=== PATIENT | female | born 1945 | race Caucasian/White ===

== ENCOUNTER 2024-06-25 11:08 | Emergency (ER) | payer MEDICARE ==
[~2024-06-25] VITALS: Ht 167.6 cm; Wt 85.7 kg
--- NOTE | 2024-06-25 11:16 | ERN ---
ED Note History of Present Illness Stated Complaint: RIB PAIN Chief Complaint: Rib Pain Time Seen by MD: 11:12 Dictation: PATIENT IS AN 79-YEAR-OLD FEMALE HERE WITH LEFT LATERAL RIB AND CHEST WALL PAIN TENDERNESS STATUS POST A FALL ON FRIDAY. SHE STATES SHE WAS WALKING WHEN SHE TRIPPED AND FELL ON HER, LANDED ON HER LEFT SIDE OF HER CHEST. NO BLOOD THINNERS NO SHORTNESS A BREATH NO HEMOPTYSIS. NO TRAUMA ALERT CRITERIA. SHE STATES SHE HAS NOT TAKEN ANYTHING FOR PAIN BUT IT HAS NOT GOTTEN AND WOULD JUST LIKE AN X-RAY. BILATERAL BREATH SOUNDS CLEAR TO AUSCULTATION SKIN IS INTACT WITH NO ECCHYMOSIS NO PALPABLE RIB FRACTURE. PATIENT HAS RIGHT FOREHEAD FADED ECCHYMOSIS, NO HAMILTON OR RACCOON SIGN. Allergies: Coded Allergies: No Known Drug Allergies (Unverified Allergy, Unknown, 06/25/24) Home Meds Active Scripts Methylprednisolone (Medrol) 4 Mg Tab.ds.pk, 1 TAB PO AD for 6 Days, #21 TAB 0 Refills 6 on day 1 then reduce by one tablet daily until gone Prov:EUNICE EATON NP 06/25/24 Acetaminophen with Codeine (Acetaminophen-Cod #3 Tablet) 300 Mg-30 Mg Tablet, 1 TAB PO Q4H PRN for MODERATE TO SEVERE PAIN, #12 TAB 0 Refills Prov:EUNICE EATON NP 06/25/24 Past Medical History History: Not Applicable RN Note Reviewed/Agreed w/PFSH: Yes Review of System Dictation CONSTITUTIONAL: NEGATIVE EXCEPT FOR HPI HEAD/FACE: NEGATIVE EXCEPT FOR HPI EENT: NEGATIVE EXCEPT FOR HPI RESPIRATORY: NEGATIVE EXCEPT FOR HPI LEFT LATERAL CHEST WALL TENDERNESS GASTROINTESTINAL/ABDOMINAL: NEGATIVE EXCEPT FOR HPI GENITOURINARY: NEGATIVE EXCEPT FOR HPI MUSCULOSKELETAL: NEGATIVE EXCEPT FOR HPI INTEGUMENTARY: NEGATIVE EXCEPT FOR HPI NEUROLOGICAL/PSYCH: NEGATIVE EXCEPT FOR HPI HEMATOLOGIC/LYMPHATIC: NEGATIVE EXCEPT FOR HPI ALL SYSTEMS NEGATIVE, EXCEPT NOTED ABOVE. 13 POINT REVIEW OF SYSTEMS ASSESSED AND ALL NEGATIVE EXCEPT FOR ABOVE. Initial Vital Sign VS Vital Signs Date Time Temp Pulse Resp B/P (MAP) Pulse Ox O2 Delivery O2 Flow Rate FiO2 06/25/24 11:10 97.9 68 18 154/77 98 Room Air 0 06/25/24 11:28 21 Physical Exam Dictation VITAL SIGNS REVIEWED GENERAL APPEARANCE: ALERT, ORIENTED X 3, MILD ACUTE DISTRESS, WELL DEVELOPED, NOURISHED. PATIENT REFUSED P.R.N. ANALGESIA I DO NOT LIKE PILLS HEAD AND FACE: FADED ECCHYMOSIS TO RIGHT LATERAL FOREHEAD. NO HAMILTON OR RAC COON SIGN EYES: PERRL, PINK CONJUNCTIVAS, EYELID NO TRAUMA, ANTERIOR CHAMBER WITH ARCUS SENILIS. EARS: PINNAS INTACT AND NO SIGNS OF TRAUMA OR ERYTHEMA EAR CANALS CLEAR AND NO DISCHARGE TM NO ERYTHEMA NO HEMOTYMPANUM NOSE: NO DISCHARGE, NO BLEEDING. OROPHARYNX: MOUTH NORMAL, TONGUE PINK, PHARYNX CLEAR,NO ERYTHEMA, TONSILS NO EXUDATES, NO ABSCESSES NOTED, MUCOUS MEMBRANE MOIST NECK: SUPPLE, NON-TENDER, NO THYROMEGALY, NO MASSES, NO JVD, NO BRUITS BREAST:DEFERRED CHEST: LEFT LATERAL SUPERIOR CHEST WALL TENDERNESS TENDERNESS, NO CREPITUS, NO PARADOXICAL MOVEMENT, NO RETRACTIONS NO FLAIL T, NO PALPABLE RIB FRACTURE LUNGS:CLEAR, WELL-VENTILATED, SYMMETRIC, NO RALES, NO WHEEZING, NO RHONCHI, NO STRIDOR, GOOD BREATH SOUNDS BILATERALLY BILATERAL BREATH SOUNDS CLEAR HEART: REGULAR RATE, REGULAR RHYTHM, NO MURMUR, NO GALLOPS VASCULAR: NO PERIPHERAL EDEMA, ABDOMEN: SOFT, POSITIVE BOWEL SOUNDS, NONDISTENDED, NO GUARDING, NONTENDER, NO REBOUND, NO MASSES NO HEPATOMEGALY, NO SPLENOMEGALY, NO RUEDA'S SIGN, NO HERNIAS. RECTAL: DEFERRED GENITAL: DEFERRED NEUROLOGICAL: NORMAL SPEECH, MOTOR FUNCTION INTACT, SENSORY FUNCTION INTACT NIH IS 0, AT BEDSIDE SAID SHE IS BASELINE MUSCULOSKELETAL: NECK NONTENDER, FULL RANGE OF MOTION, BACK NONTENDER, FULL RANGE OF MOTION, NO MIDLINE SPINE PAIN OR STEP-OFFS EXTREMITIES: NONTENDER, FULL RANGE OF MOTION SKIN: COLOR PINK, DRY, NO TURGOR, NO RASH, NO LACERATIONS, NO ABRASIONS, NO CONTUSIONS. LYMPHATIC: DEFERRED Results (Laboratory/Radiology) Laboratory/Radiology FINDINGS: Heart size is normal. Lungs are clear. No evidence for pneumothorax or pleural effusion. No evidence for pulmonary parenchymal contusion. No rib fracture identified. No intrinsic osseous abnormality detected. No radiopaque foreign body noted. IMPRESSION: 1. No rib fracture identified. 2. No radiographic evidence for any acute cardiopulmonary process. Labs Reviewed?: Yes ED Course ED Course Orders Procedure Category Date Status Time Ribs Uni Lt W Pa RAD 06/25/24 Resulted Chest 3+Vws 11:12 Dexamethasone 4mg/Ml PHA 06/25/24 Complete 1ml Vial (Dexametha 12:30 Ibuprofen 800 Mg Tab PHA 06/25/24 Complete (Motrin) 12:30 Current Medications Medications (Trade) Dose Ordered Sig/Alejandro Route PRN Reason Start Time Stop Time Status Last Admin Dose Admin Dexamethasone Sodium Phosphate (dexaMETHasone 4MG/ML 1ML VIAL) 8 mg ONCE ONCE IM 06/25/24 12:30 06/25/24 12:31 DC 06/25/24 12:35 Ibuprofen (moTRIN) 800 mg ONCE ONCE PO 06/25/24 12:30 06/25/24 12:31 DC 06/25/24 12:36 Vital Signs Date Time Temp Pulse Resp B/P (MAP) Pulse Ox O2 Delivery O2 Flow Rate FiO2 06/25/24 12:37 98.8 68 17 146/53 98 Room Air* 0 06/25/24 11:28 98.2 56 18 139/55 99 Room Air* 0 06/25/24 11:10 97.9 68 18 154/77 98 Room Air 0 1202/RIB SERIES NEGATIVE PATIENT WOULD LIKE SOMETHING NOW FOR PAIN BEFORE SHE GOES Medical Decision Making [facility] MEDICAL DISCHARGE MAKING BASED ON PAIN MANAGEMENT OF RIB PAIN RIB SERIES NEGATIVE DISCHARGED HOME WITH MEDROL AND TYLENOL NO. 3 DX & DISP Disposition: Discharge Departure Impression: Primary Impression: Contusion of left chest wall Additional Impressions: Forehead contusion, Fall Condition: Stable Scripts Methylprednisolone (Medrol) 4 Mg Tab.ds.pk 1 TAB PO AD for 6 Days, #21 TAB 0 Refills 6 on day 1 then reduce by one tablet daily until gone Prov: EUNICE EATON NP 06/25/24 Acetaminophen with Codeine (Acetaminophen-Cod #3 Tablet) 300 Mg-30 Mg Tablet 1 TAB PO Q4H PRN for MODERATE TO SEVERE PAIN, #12 TAB 0 Refills Prov: EUNICE EATON TERMITE RENEWAL INSPECTOR 06/25/24 Additional Instructions: Follow-up with primary care provider in 1 to 2 days. Take medications as directed here in the emergency room. Okay to continue home medications unless otherwise discussed during your visit in the emergency room today. Return to your nearest emergency room if symptoms worsen or if there is no improvement. Call 911 if you need immediate assistance. Take Tylenol or Motrin [id number] as needed and if no contraindications are present. Increase oral hydration. A wound culture or urine culture was ordered here in the emergency room department please follow-up with primary care provider and advise them to get repeat ports from our facility. If you had any Chris wrap/splints that were applied here, please do not remove them until you see your primary care or specialty. Take Medrol as directed until gone. Take Tylenol with codeine for severe pain. Referrals: ANDIE BIRMINGHAM MD (PCP) Time of Disposition: 12:05 I have reviewed the case, and I agree with, Diagnosis and Plan EUNICE EATON NP Jun 25, 2024 11:16 WANDA PIMENTEL DO Jun 25, 2024 12:58
--- NOTE | 2024-06-25 11:56 | HMCIMG ---
LEFT RIBS/CHEST RADIOGRAPHS - 4 VIEWS INDICATION: Left rib pain COMPARISON: None FINDINGS: Heart size is normal. Lungs are clear. No evidence for pneumothorax or pleural effusion. No evidence for pulmonary parenchymal contusion. No rib fracture identified. No intrinsic osseous abnormality detected. No radiopaque foreign body noted. IMPRESSION: 1. No rib fracture identified. 2. No radiographic evidence for any acute cardiopulmonary process.
[2024-06-25] MEDS ORDERED: ACET-2079 PO (12:06)
[2024-06-25] MEDS ORDERED: METH4TAB3 PO (12:06)
[2024-06-25] MEDS: dexaMETHasone SOD PHOSPHATE 4 MG/ML 1ML VIAL IM ONE (12:35)
[2024-06-25] MEDS: ibuPROFEN 800 MG TAB PO ONE (12:36)
[2024-06-25 12:37] VITALS: BP 146/53; PULSE 68; RESP 17; TEMP 98.7; O2SAT 98
== END 2024-06-25 12:49 | disposition home or self-care (01) ==
LOC: EDH 11:08
DX: S20.212A Contusion of left front wall of thorax, initial encounter (principal); S00.83XA Contusion of other part of head, initial encounter; Z79.899 Other long term (current) drug therapy; W01.0XXA Fall on same level from slipping, tripping and stumbling without subsequent striking against object, initial encounter; Y93.01 Activity, walking, marching and hiking; Y92.89 Other specified places as the place of occurrence of the external cause; Y99.8 Other external cause status
CPT/HCPCS: 99284; 71101; 96372; J1100